=== PATIENT | male | born 1970 | race Caucasian/White ===

== ENCOUNTER 2020-07-31 06:51 | Outpatient (CLI) | payer BC ==
[2020-08-01 02:58] LABS: SARS-CoV-2 MS2 Positive; SARS-CoV-2 N Gene Negative; SARS-CoV-2 S Gene Negative; SARS-CoV-2 by NAA Not Detected (NotDetected); SARS-CoV-2 orf1ab Negative
== END 2020-07-31 06:52 | disposition home or self-care (01) ==
LOC: LABBT 06:51
PROVIDERS: ATTEND Internal Medicine Gastroenterology
DX: Z01.812 Encounter for preprocedural laboratory examination (principal); Z20.828 Contact with and (suspected) exposure to other viral communicable diseases
CPT/HCPCS: 87635; U0003

== ENCOUNTER 2020-08-03 05:59 | Day surgery (SDC) | payer BC ==
[2020-08-02 13:26] VITALS: BMI 26.0
--- NOTE | 2020-08-03 00:50 | HP ---
HISTORY OF PRESENT ILLNESS: This is a 49-year-old male comes for a colonoscopy for colon cancer screening. The patient has no specific GI symptoms. Bowel movements are regular. No history of abdominal pain, hematochezia. ALLERGIES: ALEVE. MEDICAL ILLNESSES: 1. Chronic acid reflux. 2. Kidney stone in the past. 3. Hyperlipidemia. MEDICATIONS: 1. Omeprazole 40 mg once a day. 2. Fish oil. SOCIAL HISTORY: Does not smoke, but drinks alcohol socially. PHYSICAL EXAMINATION: VITAL SIGNS: Pulse is 70, blood pressure 130/76. HEENT: Conjunctivae are clear. CARDIOVASCULAR SYSTEM: Normal heart. LUNGS: Clear to auscultation. ABDOMEN: Soft. No organomegaly. No tenderness. No masses. EXTREMITIES: Reveal no edema. ADMITTING DIAGNOSIS: A 49-year-old male comes for a colonoscopy for colon screening. The patient has potential risks like bleeding, perforation, sepsis. The patient understood the procedure. Job ID: [id number]
--- NOTE | 2020-08-03 10:00 | OP ---
DATE OF PROCEDURE: 08/03/2020 PROCEDURES PERFORMED: 1. Colonoscopy with polypectomy. 2. Colonoscopy with 10-[place] BICAP probe for the polypectomy site. PREOPERATIVE DIAGNOSIS: Colon cancer screening. POSTOPERATIVE DIAGNOSES: 1. 1 cm sized sessile polyp, ascending colon. 2. Occasional sigmoid diverticulosis. Otherwise, exam is normal. DESCRIPTION OF PROCEDURE: The patient was placed on his left lateral position and was given sedation by Anesthesia Department. A rectal exam was done before scope was advanced into the rectum. No lesions felt on rectal exam. A [employer]ax video colonoscope was introduced into the rectum and advanced all the way to cecum. The prep was excellent. The mucosa appears normal throughout the colon with normal vascular pattern. In the appendiceal orifice, ileocecal valve, and cecum, no lesions seen. A 1 cm sized sessile polyp of the ascending colon, removed with snare cautery. However, after polypectomy, there was mild oozing of blood at the margin of polypectomy site. A 10-[place] BICAP probe was passed through biopsy channel and the area was cauterized. Good hemostasis was achieved. In the hepatic flexure, transverse colon, splenic flexure, descending colon, no pathology seen. The sigmoid colon showed occasional diverticula. Retroflexion of scope in the rectum showed no pathology. DISCHARGE PLANNING: This is a 49-year-old male, came for a colonoscopy for colon cancer screening. He underwent colonoscopy with polypectomy of ascending colon polyp. DISCHARGE RECOMMENDATIONS: 1. The patient was advised to call me if he develops abdominal pain, hematochezia, or fever. 2. In the absence of any of the above symptoms, he will come back to me in 2 weeks. Job ID: [id number]
[2020-08-03] MEDS ORDERED: PROPOFOL 200 MG/20 ML VIAL ONE (10:12)
[2020-08-03] MEDS ORDERED: Lidocaine 1% PF 5 ML VIAL ONE (10:12)
== END 2020-08-03 09:50 | disposition home or self-care (01) ==
LOC: SDC 05:59
PROVIDERS: ATTEND Internal Medicine Gastroenterology
PROC: 0DBK8ZZ Excision of Ascending Colon, Via Natural or Artificial Opening Endoscopic (ICD-10-PCS; principal; 2020-08-03)
DX: Z12.11 Encounter for screening for malignant neoplasm of colon (principal); K63.5 Polyp of colon; K57.30 Diverticulosis of large intestine without perforation or abscess without bleeding; E78.5 Hyperlipidemia, unspecified; K21.9 Gastro-esophageal reflux disease without esophagitis; Z79.899 Other long term (current) drug therapy; Z88.6 Allergy status to analgesic agent
CPT/HCPCS: 88305; J2704

== ENCOUNTER 2022-07-14 17:30 | Outpatient (CLI) | payer BC | END 2022-07-14 17:31 | disposition home or self-care (01) | LOC: SLEEPLAB 17:30 | PROVIDERS: ATTEND Otolaryngology Plastic Surgery within the Head & Neck | DX: G47.33 Obstructive sleep apnea (adult) (pediatric) (principal); R53.83 Other fatigue; R06.83 Snoring; K21.9 Gastro-esophageal reflux disease without esophagitis; G47.00 Insomnia, unspecified | CPT/HCPCS: 95800 ==